=== PATIENT | male | born 1975 | race Caucasian/White ===

== ENCOUNTER 2018-01-03 19:16 | Emergency (ER) | payer SELFPAY ==
[~2018-01-03] VITALS: Ht 185.4 cm; Wt 147.2 kg
[2018-01-03] MEDS ORDERED: PERCOCET 5/31 TABLET PO (22:41)
[2018-01-03] MEDS ORDERED: NAPROXEN500 MG PO (22:41)
[2018-01-03 22:50] VITALS: BP 114/74
== END 2018-01-03 22:51 | disposition home or self-care (01) ==
LOC: EME 19:16
DX: M54.5 Low back pain (principal); M79.604 Pain in right leg; M51.36 Other intervertebral disc degeneration, lumbar region; Z79.82 Long term (current) use of aspirin; Z87.891 Personal history of nicotine dependence
CPT/HCPCS: 72100; 93971; 99281; 99284; J1885